=== PATIENT | female | born 1950 | race Caucasian/White ===

== ENCOUNTER 2023-09-07 17:46 | Inpatient (IN) | payer MEDICARE, OTHER ==
[2023-09-07] MEDS ORDERED: SODIUM CHLORIDE 500 ML IV STA (18:49)
[2023-09-07 20:15] LABS: INR 1.1 (0.83-1.09); PROTHROMBIN TIME (PATIENT) 12.8 SEC (9.7-13.0)
[2023-09-07] MEDS ORDERED: DEXAMETHASONE SOD PHOSPHATE 10 MG/1 ML VIAL IVPUSH ONE (20:16)
[2023-09-07 20:17] LABS: ACTIVATED PTT 26.8 SECONDS (25.2-36.5)
[2023-09-07] MEDS ORDERED: DEXAMETHASONE SOD PHOSPHATE 10 MG/1 ML VIAL ONE (20:18)
[2023-09-07 20:35] LABS: POTASSIUM 3.6 mmol/L (3.5-5.1)
[2023-09-07 20:37] LABS: CALCIUM 8.8 mg/dL (8.5-10.1)
[2023-09-07 20:38] LABS: ALBUMIN 3.3 g/dl (3.4-5.0); BLOOD UREA NITROGEN 12.4 mg/dL (7-18)
[2023-09-07 20:41] LABS: CREATININE 0.8 mg/dL (0.55-1.3)
[2023-09-07 20:42] LABS: TOT PROT 6.6 g/dl (6.4-8.2)
[2023-09-07 20:43] LABS: BILIRUBIN,TOTAL 0.7 mg/dL (0.2-1)
[2023-09-07] MEDS ORDERED: CEFTRIAXONE 1,000 MG in DEXTROSE 5%-WATER - 50 ML IVPB ONE (20:48)
[2023-09-07] MEDS ORDERED: AZITHROMYCIN IVPB 500 MG in DEXTROSE 5%-WATER - 250 ML IVPB ONE (22:08)
[2023-09-07 22:24] LABS: BASO % 0.6 % (0-2.0); EOS % 1.8 % (0-4.5); HEMATOCRIT 43.6 % (32.4-45.2); LYMPH % 12.6 % (8-40); MCH 36.3 pg (25.7-33.7); MCHC 34.5 g/dl (32.0-36.0); MEAN CELL VOLUME 105.2 fl (80-96); MEAN PLT VOLUME 8.1 fl (7.5-11.1); MONO % 4.3 % (3.8-10.2); NEUT % 80.7 % (42.8-82.8); PLATELET COUNT 239 10^3/uL (134-434); RBC 4.14 M/mm3 (3.60-5.2); RDW 14.1 % (11.6-15.6); WHITE BLOOD COUNT 8.3 K/mm3 (4.0-10.0)
[2023-09-07] MEDS ORDERED: dilTIAZem HCL 50 MG/10 ML - 10 ML VIAL IVPUSH ONE ×2 (22:53→23:54)
[2023-09-07] MEDS ORDERED: SODIUM CHLORIDE 0.9% 500 ML INFUS.BAG IV ONE (22:57)
[2023-09-07] MEDS ORDERED: FUROSEMIDE 40 MG/4 ML INJECTABLE VIAL IVPUSH ONE (23:31)
[2023-09-07] MEDS ORDERED: dilTIAZem HCL 125 MG/25 ML - 25 ML VIAL ONE (23:33)
[2023-09-07] MEDS ORDERED: CEFTRIAXONE 1 GM/50 ML BAG ONE (23:33)
[2023-09-07] MEDS ORDERED: FUROSEMIDE 40 MG/4 ML INJECTABLE VIAL ONE (23:33)
[2023-09-07 23:49] LABS: ANISOCYTOSIS 1+; MACROCYTOSIS 2+; OVALOCYTE 1+
[2023-09-07] MEDS ORDERED: dilTIAZem HCL 60 MG TABLET PO ONE (23:54)
[2023-09-08] MEDS ORDERED: dilTIAZem HCL 60 MG TABLET ONE (00:11)
[2023-09-08] MEDS ORDERED: dilTIAZem HCL 125 MG/25 ML - 25 ML VIAL ONE (00:11)
[2023-09-08] MEDS ORDERED: AZITHROMYCIN IVPB 500 MG/250 ML BAG IVPB ONE (00:12)
[2023-09-08 00:17] LABS: PLATELET ESTIMATE ADEQUATE
[2023-09-08] MEDS ORDERED: FUROSEMIDE 40 MG/4 ML INJECTABLE VIAL IVPUSH ONE (03:16)
[2023-09-08 03:20] VITALS: BMI 30.4
[2023-09-08 03:24] LABS: MAGNESIUM 1.7 mg/dL (1.8-2.4)
[2023-09-08] MEDS ORDERED: MAGNESIUM SULF 50% (8.12 MEQ/2 ML-1 GM VIAL) IVPB ONE (03:49)
[2023-09-08] MEDS ORDERED: FUROSEMIDE 40 MG/4 ML INJECTABLE VIAL ONE (05:44)
[2023-09-08] MEDS: metoPROLOL SUCCINATE 25 MG TAB.SR.24H (FP) PO SCH (05:46)
[2023-09-08] MEDS ORDERED: REMDESIVIR 200 MG in SODIUM CHLORIDE 250 ML IVPB ONE ×2 (09:00→10:00)
[2023-09-08] MEDS ORDERED: DOXYCYCLINE HYCLATE 100 MG CAPSULE PO SCH (10:00)
[2023-09-08] MEDS: LOSARTAN POTASSIUM 25 MG TABLET PO SCH (10:14)
[2023-09-08] MEDS: APIXABAN 5 MG TABLET PO SCH ×2 (10:14→22:47)
[2023-09-08 12:05] LABS: URINE APPEARANCE CLEAR; URINE BILIRUBIN NEGATIVE (NEGATIVE); URINE COLOR YELLOW; URINE GLUCOSE (UA) NEGATIVE (NEGATIVE); URINE KETONE NEGATIVE (NEGATIVE); URINE LEUK ESTERASE NEGATIVE (NEGATIVE); URINE NITRITE NEGATIVE (NEGATIVE); URINE PROTEIN NEGATIVE (NEGATIVE); URINE UROBILINOGEN 0.2 mg/dL (0.2-1.0)
[2023-09-08 12:06] LABS: HEMATOCRIT 38.3 % (32.4-45.2); HEMOGLOBIN 13.3 GM/dL (10.7-15.3); MCH 36.3 pg (25.7-33.7); MCHC 34.7 g/dl (32.0-36.0); MEAN CELL VOLUME 104.6 fl (80-96); MEAN PLT VOLUME 7.8 fl (7.5-11.1); PLATELET COUNT 243 10^3/uL (134-434); RBC 3.67 M/mm3 (3.60-5.2); WHITE BLOOD COUNT 8.7 K/mm3 (4.0-10.0)
[2023-09-08 12:25] LABS: POTASSIUM 3.9 mmol/L (3.5-5.1)
[2023-09-08 12:27] LABS: CALCIUM 8.6 mg/dL (8.5-10.1); MAGNESIUM 2.1 mg/dL (1.8-2.4)
[2023-09-08 12:30] LABS: PHOSPHOROUS 3.1 mg/dL (2.5-4.9)
[2023-09-08 12:32] LABS: BILIRUBIN,TOTAL 0.4 mg/dL (0.2-1); CREATININE 0.9 mg/dL (0.55-1.3); TOT PROT 6.3 g/dl (6.4-8.2)
[2023-09-08 13:20] LABS: ANISOCYTOSIS 2+; MACROCYTOSIS 2+
[2023-09-08] MEDS: DEXAMETHASONE SOD PHOSPHATE 10 MG/1 ML VIAL IVPUSH SCH (14:12)
[2023-09-08] MEDS: AMITRIPTYLINE HCL 25 MG TABLET PO SCH (22:47)
[2023-09-09] MEDS ORDERED: CEFTRIAXONE 1,000 MG in DEXTROSE 5%-WATER - 50 ML IVPB SCH
[2023-09-09] MEDS ORDERED: LIDOCAINE 5% TOPICAL PATCH TP ONE (02:25)
[2023-09-09 08:41] LABS: HEMATOCRIT 41.1 % (32.4-45.2); HEMOGLOBIN 13.9 GM/dL (10.7-15.3); MCH 35.6 pg (25.7-33.7); MCHC 33.8 g/dl (32.0-36.0); MEAN CELL VOLUME 105.3 fl (80-96); MEAN PLT VOLUME 8.1 fl (7.5-11.1); PLATELET COUNT 306 10^3/uL (134-434); RDW 14.2 % (11.6-15.6); WHITE BLOOD COUNT 13.8 K/mm3 (4.0-10.0)
[2023-09-09 09:12] LABS: POTASSIUM 4.2 mmol/L (3.5-5.1)
[2023-09-09 09:24] LABS: BLOOD UREA NITROGEN 19.1 mg/dL (7-18)
[2023-09-09 09:25] LABS: ALBUMIN 3.4 g/dl (3.4-5.0); BILIRUBIN,TOTAL 0.3 mg/dL (0.2-1); CALCIUM 9.4 mg/dL (8.5-10.1); CREATININE 0.8 mg/dL (0.55-1.3); MAGNESIUM 2.3 mg/dL (1.8-2.4); PHOSPHOROUS 3.8 mg/dL (2.5-4.9); TOT PROT 6.8 g/dl (6.4-8.2)
[2023-09-09] MEDS: DEXAMETHASONE SOD PHOSPHATE 10 MG/1 ML VIAL IVPUSH SCH (09:33)
[2023-09-09] MEDS: LOSARTAN POTASSIUM 25 MG TABLET PO SCH (09:34)
[2023-09-09] MEDS: metoPROLOL SUCCINATE 25 MG TAB.SR.24H (FP) PO SCH ×2 (09:34→21:40)
[2023-09-09] MEDS: APIXABAN 5 MG TABLET PO SCH ×2 (09:34→21:40)
[2023-09-09] MEDS ORDERED: REMDESIVIR 100 MG in SODIUM CHLORIDE 230 ML IVPB ONE (10:00)
[2023-09-09] MEDS ORDERED: FUROSEMIDE 40 MG/4 ML INJECTABLE VIAL IVPUSH SCH (10:00)
[2023-09-09] MEDS ORDERED: FUROSEMIDE 40 MG TABLET (FP) PO SCH (10:00)
[2023-09-09] MEDS ORDERED: FUROSEMIDE 40 MG/4 ML INJECTABLE VIAL IVPUSH ONE (11:00)
[2023-09-09] MEDS: AMITRIPTYLINE HCL 25 MG TABLET PO SCH (21:40)
[2023-09-09] MEDS: LIDOCAINE PATCH REMOVAL MC SCH (21:40)
[2023-09-09] MEDS ORDERED: metoPROLOL SUCCINATE 25 MG TAB.SR.24H (FP) PO SCH (22:00)
[2023-09-10] MEDS: DEXAMETHASONE SOD PHOSPHATE 10 MG/1 ML VIAL IVPUSH SCH (09:20)
[2023-09-10] MEDS: metoPROLOL SUCCINATE 25 MG TAB.SR.24H (FP) PO SCH ×2 (09:20→21:51)
[2023-09-10] MEDS: LOSARTAN POTASSIUM 25 MG TABLET PO SCH (09:20)
[2023-09-10] MEDS: APIXABAN 5 MG TABLET PO SCH ×2 (09:20→21:51)
[2023-09-10] MEDS ORDERED: REMDESIVIR 100 MG in SODIUM CHLORIDE 230 ML IVPB ONE (10:00)
[2023-09-10] MEDS ORDERED: FUROSEMIDE 40 MG/4 ML INJECTABLE VIAL IVPUSH SCH (10:00)
[2023-09-10 14:06] LABS: HEMATOCRIT 45.2 % (32.4-45.2); HEMOGLOBIN 14.8 GM/dL (10.7-15.3); MCH 34.4 pg (25.7-33.7); MCHC 32.6 g/dl (32.0-36.0); MEAN CELL VOLUME 105.5 fl (80-96); MEAN PLT VOLUME 7.8 fl (7.5-11.1); PLATELET COUNT 336 10^3/uL (134-434); RBC 4.29 M/mm3 (3.60-5.2); RDW 14.4 % (11.6-15.6); WHITE BLOOD COUNT 14.3 K/mm3 (4.0-10.0)
[2023-09-10 14:25] LABS: CALCIUM 9.1 mg/dL (8.5-10.1)
[2023-09-10 14:26] LABS: BLOOD UREA NITROGEN 23.4 mg/dL (7-18)
[2023-09-10 14:29] LABS: CREATININE 0.8 mg/dL (0.55-1.3); PHOSPHOROUS 4.1 mg/dL (2.5-4.9)
[2023-09-10 14:36] LABS: ANISOCYTOSIS 3+; MACROCYTOSIS 3+
[2023-09-10] MEDS: AMITRIPTYLINE HCL 25 MG TABLET PO SCH (21:51)
[2023-09-10] MEDS: GABAPENTIN 250 MG/5 ML ORAL SOLUTION, 470 ML BOTTLE PO SCH (21:51)
[2023-09-10] MEDS: LIDOCAINE PATCH REMOVAL MC SCH (21:51)
[2023-09-11 07:11] LABS: HEMATOCRIT 40.4 % (32.4-45.2); HEMOGLOBIN 13.6 GM/dL (10.7-15.3); MCHC 33.6 g/dl (32.0-36.0); MEAN PLT VOLUME 7.7 fl (7.5-11.1); PLATELET COUNT 286 10^3/uL (134-434); RBC 3.88 M/mm3 (3.60-5.2); RDW 13.8 % (11.6-15.6); WHITE BLOOD COUNT 8.8 K/mm3 (4.0-10.0)
[2023-09-11 07:18] LABS: POTASSIUM 3.7 mmol/L (3.5-5.1)
[2023-09-11 07:22] LABS: CALCIUM 8.7 mg/dL (8.5-10.1)
[2023-09-11 07:23] LABS: ALBUMIN 2.8 g/dl (3.4-5.0); BLOOD UREA NITROGEN 24.6 mg/dL (7-18); MAGNESIUM 2.1 mg/dL (1.8-2.4)
[2023-09-11 07:26] LABS: CREATININE 0.8 mg/dL (0.55-1.3); PHOSPHOROUS 4.6 mg/dL (2.5-4.9)
[2023-09-11 07:27] LABS: BILIRUBIN,TOTAL 0.5 mg/dL (0.2-1)
[2023-09-11 07:28] LABS: TOT PROT 5.4 g/dl (6.4-8.2)
[2023-09-11] MEDS: LOSARTAN POTASSIUM 25 MG TABLET PO SCH (10:00)
[2023-09-11] MEDS: APIXABAN 5 MG TABLET PO SCH ×2 (10:04→22:06)
[2023-09-11] MEDS: FUROSEMIDE 40 MG TABLET (FP) PO SCH (10:32)
[2023-09-11] MEDS: DEXAMETHASONE SOD PHOSPHATE 10 MG/1 ML VIAL IVPUSH SCH (10:32)
[2023-09-11] MEDS ORDERED: metoPROLOL SUCCINATE 25 MG TAB.SR.24H (FP) PO ONE (11:34)
[2023-09-11] MEDS: metoPROLOL SUCCINATE 25 MG TAB.SR.24H (FP) PO SCH (13:20)
[2023-09-11] MEDS ORDERED: REMDESIVIR 100 MG in SODIUM CHLORIDE 250 ML IVPB ONE (19:30)
[2023-09-11] MEDS ORDERED: metoPROLOL SUCCINATE 25 MG TAB.SR.24H (FP) PO SCH (22:00)
[2023-09-11] MEDS: LIDOCAINE PATCH REMOVAL MC SCH (22:17)
[2023-09-11] MEDS: GABAPENTIN 250 MG/5 ML ORAL SOLUTION, 470 ML BOTTLE PO SCH (22:22)
[2023-09-11] MEDS: AMITRIPTYLINE HCL 25 MG TABLET PO SCH (22:22)
[2023-09-12 06:51] LABS: HEMATOCRIT 48.5 % (32.4-45.2); HEMOGLOBIN 16.1 GM/dL (10.7-15.3); MCH 35.2 pg (25.7-33.7); MCHC 33.2 g/dl (32.0-36.0); MEAN CELL VOLUME 106.1 fl (80-96); MEAN PLT VOLUME 8.1 fl (7.5-11.1); PLATELET COUNT 346 10^3/uL (134-434); RBC 4.57 M/mm3 (3.60-5.2); RDW 14.2 % (11.6-15.6); WHITE BLOOD COUNT 11.3 K/mm3 (4.0-10.0)
[2023-09-12 07:13] LABS: BLOOD UREA NITROGEN 29.9 mg/dL (7-18); CALCIUM 8.7 mg/dL (8.5-10.1)
[2023-09-12 07:17] LABS: CREATININE 0.9 mg/dL (0.55-1.3)
[2023-09-12 07:18] LABS: BILIRUBIN,TOTAL 0.3 mg/dL (0.2-1); TOT PROT 6.9 g/dl (6.4-8.2)
[2023-09-12 07:27] LABS: ALBUMIN 3.4 g/dl (3.4-5.0)
[2023-09-12] MEDS: DEXAMETHASONE SOD PHOSPHATE 10 MG/1 ML VIAL IVPUSH SCH (10:09)
[2023-09-12] MEDS: APIXABAN 5 MG TABLET PO SCH ×2 (10:09→21:32)
[2023-09-12] MEDS: FUROSEMIDE 40 MG TABLET (FP) PO SCH (10:09)
[2023-09-12] MEDS ORDERED: REMDESIVIR 100 MG in SODIUM CHLORIDE 230 ML IVPB ONE (14:00)
[2023-09-12] MEDS ORDERED: metoPROLOL SUCCINATE 25 MG TAB.SR.24H (FP) PO ONE ×2 (15:30→22:42)
[2023-09-12] MEDS: GABAPENTIN 250 MG/5 ML ORAL SOLUTION, 470 ML BOTTLE PO SCH (21:33)
[2023-09-12] MEDS: AMITRIPTYLINE HCL 25 MG TABLET PO SCH (21:33)
[2023-09-12] MEDS: LIDOCAINE PATCH REMOVAL MC SCH (21:34)
[2023-09-12] MEDS ORDERED: METOPROLOL SUCCINATE 50 MG, METOPROLOL SUCCINATE 25 MG PO SCH (22:00)
[2023-09-13 07:02] LABS: HEMATOCRIT 44.4 % (32.4-45.2); MCH 35.5 pg (25.7-33.7); MCHC 33.8 g/dl (32.0-36.0); PLATELET COUNT 276 10^3/uL (134-434); RBC 4.23 M/mm3 (3.60-5.2); RDW 13.7 % (11.6-15.6); WHITE BLOOD COUNT 10.3 K/mm3 (4.0-10.0)
[2023-09-13 07:11] LABS: POTASSIUM 3.7 mmol/L (3.5-5.1)
[2023-09-13 07:13] LABS: BLOOD UREA NITROGEN 29.2 mg/dL (7-18)
[2023-09-13 07:16] LABS: CREATININE 0.8 mg/dL (0.55-1.3); PHOSPHOROUS 3.9 mg/dL (2.5-4.9)
[2023-09-13] MEDS: APIXABAN 5 MG TABLET PO SCH ×2 (10:41→21:54)
[2023-09-13] MEDS: DEXAMETHASONE SOD PHOSPHATE 10 MG/1 ML VIAL IVPUSH SCH (10:41)
[2023-09-13] MEDS: FUROSEMIDE 40 MG TABLET (FP) PO SCH (10:41)
[2023-09-13] MEDS: AMITRIPTYLINE HCL 25 MG TABLET PO SCH (21:54)
[2023-09-13] MEDS: LIDOCAINE PATCH REMOVAL MC SCH (21:56)
[2023-09-13] MEDS: GABAPENTIN 250 MG/5 ML ORAL SOLUTION, 470 ML BOTTLE PO SCH (21:56)
[2023-09-14 07:20] LABS: HEMATOCRIT 42.9 % (32.4-45.2); HEMOGLOBIN 14.6 GM/dL (10.7-15.3); MCH 35.6 pg (25.7-33.7); MCHC 33.9 g/dl (32.0-36.0); MEAN CELL VOLUME 104.9 fl (80-96); MEAN PLT VOLUME 7.7 fl (7.5-11.1); PLATELET COUNT 273 10^3/uL (134-434); RBC 4.09 M/mm3 (3.60-5.2); RDW 14.1 % (11.6-15.6); WHITE BLOOD COUNT 10.5 K/mm3 (4.0-10.0)
[2023-09-14 08:03] LABS: POTASSIUM 3.9 mmol/L (3.5-5.1)
[2023-09-14 08:05] LABS: BLOOD UREA NITROGEN 27.5 mg/dL (7-18); CALCIUM 8.8 mg/dL (8.5-10.1); MAGNESIUM 1.8 mg/dL (1.8-2.4)
[2023-09-14 08:08] LABS: PHOSPHOROUS 4.3 mg/dL (2.5-4.9)
[2023-09-14 08:09] LABS: CREATININE 0.9 mg/dL (0.55-1.3)
[2023-09-14] MEDS: FUROSEMIDE 40 MG TABLET (FP) PO SCH (10:42)
[2023-09-14] MEDS: DEXAMETHASONE SOD PHOSPHATE 10 MG/1 ML VIAL IVPUSH SCH ×3 (10:42→15:52)
[2023-09-14] MEDS: APIXABAN 5 MG TABLET PO SCH ×2 (10:43→21:33)
[2023-09-14] MEDS: AMITRIPTYLINE HCL 25 MG TABLET PO SCH (21:32)
[2023-09-14] MEDS: GABAPENTIN 250 MG/5 ML ORAL SOLUTION, 470 ML BOTTLE PO SCH (21:32)
[2023-09-14] MEDS: METOPROLOL SUCCINATE 100 MG, METOPROLOL SUCCINATE 25 MG PO SCH (21:32)
[2023-09-14] MEDS: LIDOCAINE PATCH REMOVAL MC SCH (21:33)
[2023-09-15 07:31] LABS: BASO % 0.1 % (0-2.0); EOS % 0.1 % (0-4.5); HEMATOCRIT 41.9 % (32.4-45.2); HEMOGLOBIN 13.7 GM/dL (10.7-15.3); LYMPH % 10.5 % (8-40); MCH 34.2 pg (25.7-33.7); MCHC 32.8 g/dl (32.0-36.0); MEAN CELL VOLUME 104.4 fl (80-96); MEAN PLT VOLUME 8.2 fl (7.5-11.1); MONO % 5.4 % (3.8-10.2); NEUT % 83.9 % (42.8-82.8); PLATELET COUNT 239 10^3/uL (134-434); RBC 4.01 M/mm3 (3.60-5.2); RDW 13.9 % (11.6-15.6); WHITE BLOOD COUNT 11.2 K/mm3 (4.0-10.0)
[2023-09-15 07:49] LABS: POTASSIUM 3.6 mmol/L (3.5-5.1)
[2023-09-15 08:08] LABS: BLOOD UREA NITROGEN 28.9 mg/dL (7-18)
[2023-09-15 08:09] LABS: ALBUMIN 2.8 g/dl (3.4-5.0)
[2023-09-15 08:12] LABS: CREATININE 0.8 mg/dL (0.55-1.3); PHOSPHOROUS 3.9 mg/dL (2.5-4.9)
[2023-09-15 08:13] LABS: TOT PROT 5.3 g/dl (6.4-8.2)
[2023-09-15 08:14] LABS: BILIRUBIN,TOTAL 0.5 mg/dL (0.2-1)
[2023-09-15 08:17] LABS: CALCIUM 8.4 mg/dL (8.5-10.1)
[2023-09-15] MEDS: DIGOXIN 0.125 MG TABLET PO SCH (10:02)
[2023-09-15] MEDS: DEXAMETHASONE SOD PHOSPHATE 10 MG/1 ML VIAL IVPUSH SCH (10:02)
[2023-09-15] MEDS: APIXABAN 5 MG TABLET PO SCH ×2 (10:02→22:21)
[2023-09-15] MEDS: METOPROLOL SUCCINATE 100 MG, METOPROLOL SUCCINATE 25 MG PO SCH (10:03)
[2023-09-15] MEDS: FUROSEMIDE 40 MG TABLET (FP) PO SCH (10:03)
[2023-09-15] MEDS ORDERED: METOPROLOL SUCCINATE 100 MG, METOPROLOL SUCCINATE 25 MG PO SCH (22:00)
[2023-09-15] MEDS: AMITRIPTYLINE HCL 25 MG TABLET PO SCH (22:29)
[2023-09-15] MEDS: GABAPENTIN 250 MG/5 ML ORAL SOLUTION, 470 ML BOTTLE PO SCH (22:34)
[2023-09-15] MEDS: LIDOCAINE PATCH REMOVAL MC SCH (22:35)
[2023-09-16 04:02] VITALS: RESP 20
[2023-09-16 07:38] LABS: HEMATOCRIT 44.5 % (32.4-45.2); MCH 35.5 pg (25.7-33.7); MCHC 33.8 g/dl (32.0-36.0); MEAN CELL VOLUME 105.1 fl (80-96); MEAN PLT VOLUME 8.2 fl (7.5-11.1); PLATELET COUNT 244 10^3/uL (134-434); RBC 4.23 M/mm3 (3.60-5.2); WHITE BLOOD COUNT 16.1 K/mm3 (4.0-10.0)
[2023-09-16 07:58] LABS: POTASSIUM 4.1 mmol/L (3.5-5.1)
[2023-09-16 08:01] LABS: CALCIUM 8.7 mg/dL (8.5-10.1)
[2023-09-16 08:02] LABS: BLOOD UREA NITROGEN 26.3 mg/dL (7-18); MAGNESIUM 1.9 mg/dL (1.8-2.4)
[2023-09-16 08:05] LABS: CREATININE 0.9 mg/dL (0.55-1.3); PHOSPHOROUS 3.4 mg/dL (2.5-4.9)
[2023-09-16] MEDS: DIGOXIN 0.125 MG TABLET PO SCH (10:25)
[2023-09-16] MEDS: FUROSEMIDE 40 MG TABLET (FP) PO SCH (10:33)
[2023-09-16] MEDS: APIXABAN 5 MG TABLET PO SCH (10:33)
[2023-09-16 16:21] VITALS: BP 101/56; PULSE 88; TEMP 98.2
== END 2023-09-16 16:23 | disposition home or self-care (01) | DRG 177 ==
LOC: JER 17:46 → JERBED 22:55 → J4W 09-08 05:31
PROVIDERS: ADMIT Internal Medicine; ATTEND Internal Medicine
PROC: XW033E5 Introduction of Remdesivir Anti-infective into Peripheral Vein, Percutaneous Approach, New Technology Group 5 (ICD-10-PCS; principal; 2023-09-07)
DX: U07.1 COVID-19 (principal); I50.31 Acute diastolic (congestive) heart failure; J12.82 Pneumonia due to coronavirus disease 2019; I48.91 Unspecified atrial fibrillation; I11.0 Hypertensive heart disease with heart failure; J44.9 Chronic obstructive pulmonary disease, unspecified; F41.9 Anxiety disorder, unspecified
CPT/HCPCS: 0241U-QW; 36415; 71045-TC-FY; 71046-TC-FY; 80048; 80053; 80061; 81003; 83735; 83880; 84100; 84439; 84443; 84484; 85025; 85027; 85610; 85730; 86140; 93005; 93010; 94761; 99285-25; J0248; J1100